=== PATIENT | female | born 1950 | race Caucasian/White ===

== ENCOUNTER → 2016-06-15 | Outpatient (CLI) | payer OTHER ==
--- NOTE | 2016-06-15 09:24 | US ---
Right Upper Quadrant Sonogram (Limited Abdominal) Clinical Indications: Hepatitis C. Comparison: September 06, 2015. Findings: The visualized pancreas is unremarkable. The aorta tapers normally from 26 to 17 mm. The liver is nonenlarged. The portal vein is patent. The liver measures 12.3 cm in the midaxillary li ne. Gallbladder is unremarkable. Gallbladder wall is normal at 1 mm. It is fluid filled. Common bile duct is normal at 6 mm. The hepatic echotexture is minimally increased and minimally coarsened. The right kidney measures 5.4 x 4.8 x 10.8 cm with a 1.1 cm cortex. Impression: No evidence of cirrhosis or liver mass in a patient with a history of hepatitis C. Mildly increased echogenicity of the liver likely secondary to steatosis or prior hepatitis. Stable from co mparison examination.
== END ==
LOC: FIMAGING 07:28
PROVIDERS: ATTEND Internal Medicine
DX: Z03.89 Encounter for observation for other suspected diseases and conditions ruled out (principal); B19.20 Unspecified viral hepatitis C without hepatic coma